=== PATIENT | female | born 1955 | race Caucasian/White ===

== ENCOUNTER 2017-12-23 19:12 | Emergency (ER) | payer OTHER ==
[~2017-12-23] VITALS: Ht 160 cm; Wt 108.9 kg
[~2017-12-23 19:12] MED LIST: AMIT25 PO; AMLO10 PO; AMOX500 PO; ASPI81CH PO; ATOR40TA PO; BP MED; CHOLESTEROL MED; CIPR250 PO; CLON.1 PO; CYCL10 PO; DIAZ5 PO; ESTR1 PO; FISH1000 PO; GABA300 PO; HYDACE5 PO; KETO10 PO; LISHYD2012 PO; LISHYD2025 PO; MELO7.5 PO; METCAR750 PO; METF500 PO; Mobic15 MG PO; NAPR500 PO; OXYACE5T PO; PARO20 PO; PERCOCET 10/325 PO; Percocet 5-3251 EACH PO; RXOXYACE PO; SIMV40 PO; Ultram50 MG PO; WARF6 PO; ZESTORETIC 20-121 E1 PO; Zofran Odt4 MG SL
== END 2017-12-23 21:52 | disposition home or self-care (01) ==
LOC: ER 19:12
DX: S93.401A Sprain of unspecified ligament of right ankle, initial encounter (principal); M25.562 Pain in left knee; I10 Essential (primary) hypertension; Z79.899 Other long term (current) drug therapy; Z79.84 Long term (current) use of oral hypoglycemic drugs; W01.0XXA Fall on same level from slipping, tripping and stumbling without subsequent striking against object, initial encounter
CPT/HCPCS: 73564; 73610; 96372; 99283; J1885

== ENCOUNTER 2018-01-26 19:06 | Emergency (ER) | payer OTHER ==
[~2018-01-26] VITALS: Ht 160 cm; Wt 106.6 kg
[2018-01-26 21:13] LABS: Troponin I <0.015 ng/mL (0.000-0.040)
[2018-01-26] MEDS ORDERED: Protonix40 MG PO (22:16)
[2018-01-26] MEDS ORDERED: Zofran Odt4 MG PO (22:16)
== END 2018-01-26 22:37 | disposition home or self-care (01) ==
LOC: ER 19:06
DX: K29.70 Gastritis, unspecified, without bleeding (principal); K59.00 Constipation, unspecified; I10 Essential (primary) hypertension; Z79.899 Other long term (current) drug therapy
CPT/HCPCS: 36415; 74018; 83690; 83880; 84484; 93005; 93010; 99283

== ENCOUNTER 2023-02-13 19:03 | Emergency (ER) | payer OTHER, MEDICARE ==
[~2023-02-13] VITALS: Ht 160 cm; Wt 81.7 kg
[~2023-02-13 19:03] MED LIST changes: +Protonix40 MG PO; +Zofran Odt4 MG PO
[2023-02-13] MEDS ORDERED: GLIP2.5ER (20:36)
[2023-02-13] MEDS ORDERED: Lisinopril2.5 MG (20:36)
[2023-02-13] MEDS ORDERED: OXAYDO5 M1 PO (22:29)
[2023-02-13 23:23] VITALS: BP 142/52
== END 2023-02-13 23:21 | disposition home or self-care (01) ==
LOC: ER 19:03
DX: S82.091A Other fracture of right patella, initial encounter for closed fracture (principal); W01.0XXA Fall on same level from slipping, tripping and stumbling without subsequent striking against object, initial encounter; I10 Essential (primary) hypertension; Z79.899 Other long term (current) drug therapy; Z86.718 Personal history of other venous thrombosis and embolism; Z79.84 Long term (current) use of oral hypoglycemic drugs
CPT/HCPCS: 29505; 73562-RT; 96374-59; 99284-25; A9270; J1170

== ENCOUNTER 2023-02-18 06:00 | Day surgery (SDC) | payer MEDICARE, OTHER ==
[~2023-02-18] VITALS: Ht 160 cm; Wt 87.3 kg
[2023-02-18] VITALS (14 sets, daily range): BP systolic 117–163; BP diastolic 57–91
[~2023-02-18 06:00] MED LIST changes: +GLIP2.5ER; +Lisinopril2.5 MG; +OXAYDO5 M1 PO
[2023-02-18] MEDS ORDERED: IBUP800 PO (06:38)
[2023-02-18] MEDS ORDERED: Lisinopril-Hct1 EAC4 (06:39)
[2023-02-18] MEDS ORDERED: RYBELSUS14 MG (06:40)
--- NOTE | 2023-02-18 07:10 | NUR ---
inTO Day Surgery VIA W/C. History, Chart, Medications and Allergies reviewed before start of procedure.Pre-Op teaching done. Pt verbalizes understanding. Patient confirms NPO status and agrees with scheduled surgery. Patient States Post-Procedure ride home has been arranged.
--- NOTE | 2023-02-18 07:23 | NUR ---
TIME OUT PREFORMED WITH DR. RUSH FOR RIGHT LEG ADDUCTOR BLOCK
[2023-02-18] MEDS ORDERED: HYDR1TAB94 PO (15:02)
== END 2023-02-18 15:03 | disposition home or self-care (01) ==
LOC: SURS 06:00 → ORSCMMR 06:00 → ORD 07:30 → SURS 10:23 → ORSCMMR 15:03
PROVIDERS: Orthopaedic Surgery
PROC: 0QSD0ZZ Reposition Right Patella, Open Approach (ICD-10-PCS; principal; 2023-02-18 07:30)
DX: S82.001A Unspecified fracture of right patella, initial encounter for closed fracture (principal); W17.89XA Other fall from one level to another, initial encounter; E11.9 Type 2 diabetes mellitus without complications; I10 Essential (primary) hypertension; G47.33 Obstructive sleep apnea (adult) (pediatric); K21.9 Gastro-esophageal reflux disease without esophagitis; Z87.891 Personal history of nicotine dependence; Z79.4 Long term (current) use of insulin; Z79.899 Other long term (current) drug therapy; Z79.84 Long term (current) use of oral hypoglycemic drugs
CPT/HCPCS: 82947; 97110; 97162; 97530; A9270; J0690; J1100; J2250; J2405; J2704; J2765; J3010; J7120